=== PATIENT | female | born 1960 | race Hispanic/Latino ===

== ENCOUNTER → 2024-01-08 | Day surgery (SDC) | payer OTHER ==
[2024-01-07 15:05] LABS: BASOPHILS % 0.4 % (0.0-1.0); EOSINOPHILS # (AUTO) 0.1 (0.0-0.4); EOSINOPHILS % 1.3 % (0.0-6.0); HEMATOCRIT 35.4 % (34.2-44.1); LYMPHOCYTES # (AUTO) 3.1 (1.0-3.2); LYMPHOCYTES % 37.6 % (18.0-39.1); MEAN CORPUSCULAR HEMOGLOBIN 30.8 pg (28-32); MEAN CORPUSCULAR HGB CONC 33.9 g/dL (31-35); MONOCYTES # (AUTO) 0.7 (0.2-0.8); MONOCYTES % 8.8 % (4.4-11.3); NEUTROPHILS # (AUTO) 4.3 (2.1-6.9); NEUTROPHILS % 51.5 % (38.7-80.0); PLATELET COUNT 321 x10e3/uL (140-360); RED BLOOD COUNT 3.89 x10e6/uL (3.6-5.1); RED CELL DISTRIBUTION WIDTH 13.4 % (11.7-14.4); WHITE BLOOD COUNT 8.27 x10e3/uL (4.8-10.8)
[~2024-01-08] MED LIST: ACETAMINOPHEN 1000 MG/100 ML IV PRN; CELECOXIB 100 MG CAP PO SCH; DIPHENHYDRAMINE HCL INJ 50 MG/ML VIAL IV PRN; DOCUSATE SODIUM 100 MG CAP PO PRN; ELIQUIS5 MG PO; FENTANYL CITRATE/PF 100MCG/2 ML INJ ONE; HYDROCODONE/APAP 5MG-325MG TAB PO PRN; KETOROLAC TROME10 MG PO; LEVOTHYROXINE88 MCG PO; LIDOCAINE HCL 2% LOCAL INJ 5 ML SDV VIAL INJ ONE; LIPITOR20 MG PO; OMEPRAZOLE40 MG PO; ONDANSETRON HCL INJ 2MG/ML 2ML 2 MG/ML VIAL IV PRN; ONDANSETRON HCL INJ 2MG/ML 2ML 2 MG/ML VIAL ONE; PROPOFOL IV EMULSION 10 MG/ML 20 ML VIAL ONE; ROPIVACAINE/EPI/CLONIDINE/KET 50 ML SYRINGE INJ ONE; SODIUM CHLORIDE 0.9% 1000ML 1,000 ML IV SCH
[2024-01-08] MEDS: LACTATED RINGER'S 1,000 ML ONE (07:30)
[2024-01-08] MEDS: CEFAZOLIN SODIUM 2 GM ONE (07:58)
[2024-01-08] MEDS: GABAPENTIN 300 MG CAP ONE (07:58)
[2024-01-08] MEDS: DEXAMETHASONE SOD PHOS 10 MG/1 ML VIAL ONE (07:58)
[2024-01-08] MEDS: CELECOXIB 200 MG CAP ONE (07:58)
[2024-01-08 10:17] VITALS: TEMP 97.3
[2024-01-08] MEDS: MEPERIDINE HCL INJ 25 MG/ML VIAL ONE (10:50)
[2024-01-08] MEDS: HYDROCODONE/APAP 7.5MG-325MG 1 EA TAB PO PRN (11:23)
[2024-01-08] MEDS: HYDROCODONE/APAP 7.5MG-325MG 1 EA TAB ONE (13:11)
[2024-01-08 15:40] VITALS: BP 111/57; PULSE 68; RESP 17; O2SAT 98
== END | disposition home health service (06) ==
LOC: OR 06:45
PROVIDERS: ATTEND Specialist
DX: M17.11 Unilateral primary osteoarthritis, right knee (principal); M06.9 Rheumatoid arthritis, unspecified; E78.5 Hyperlipidemia, unspecified; K44.9 Diaphragmatic hernia without obstruction or gangrene; E03.9 Hypothyroidism, unspecified; Z88.0 Allergy status to penicillin; Z01.810 Encounter for preprocedural cardiovascular examination; Z01.812 Encounter for preprocedural laboratory examination; Z01.818 Encounter for other preprocedural examination; Z79.02 Long term (current) use of antithrombotics/antiplatelets; Z79.899 Other long term (current) drug therapy; Z86.711 Personal history of pulmonary embolism; Z86.718 Personal history of other venous thrombosis and embolism
CPT/HCPCS: 27447; 36415; 71046; 73560; 85025; 86850; 86900; 93005; 97116 ×2; 97161; 97530; C1713 ×2; C1776 ×2; J1100; J2003; J2175; J2405; J2704; J3010; J7121

== ENCOUNTER 2024-01-09 22:27 | Emergency (ER) | payer OTHER ==
[~2024-01-09] VITALS: Ht 157.5 cm; Wt 60.8 kg
[~2024-01-09 22:27] MED LIST changes: -ACETAMINOPHEN 1000 MG/100 ML IV PRN; -CELECOXIB 100 MG CAP PO SCH; -DIPHENHYDRAMINE HCL INJ 50 MG/ML VIAL IV PRN; -DOCUSATE SODIUM 100 MG CAP PO PRN; -FENTANYL CITRATE/PF 100MCG/2 ML INJ ONE; -HYDROCODONE/APAP 5MG-325MG TAB PO PRN; -KETOROLAC TROME10 MG PO; -LIDOCAINE HCL 2% LOCAL INJ 5 ML SDV VIAL INJ ONE; -ONDANSETRON HCL INJ 2MG/ML 2ML 2 MG/ML VIAL IV PRN; -ONDANSETRON HCL INJ 2MG/ML 2ML 2 MG/ML VIAL ONE; -PROPOFOL IV EMULSION 10 MG/ML 20 ML VIAL ONE; -ROPIVACAINE/EPI/CLONIDINE/KET 50 ML SYRINGE INJ ONE; -SODIUM CHLORIDE 0.9% 1000ML 1,000 ML IV SCH
[2024-01-09 22:38] VITALS: TEMP 98.6
[2024-01-09] MEDS: ONDANSETRON HCL INJ 2MG/ML 2ML 2 MG/ML VIAL IV STA (22:59)
[2024-01-09] MEDS: Morphine 4mg INJECTION 4 MG/ML INJ IV STA (22:59)
[2024-01-10] MEDS ORDERED: KETOROLAC TROME10 MG PO (00:02)
[2024-01-10 00:09] VITALS: PULSE 60; RESP 16; O2SAT 99
== END 2024-01-10 00:22 | disposition home or self-care (01) ==
LOC: ER 22:31
DX: G89.18 Other acute postprocedural pain (principal); Z96.651 Presence of right artificial knee joint; E03.9 Hypothyroidism, unspecified; E78.5 Hyperlipidemia, unspecified; K21.9 Gastro-esophageal reflux disease without esophagitis; Z86.718 Personal history of other venous thrombosis and embolism
CPT/HCPCS: 73560; 93971; 99283; J2270; J2405